=== PATIENT | female | born 1955 | race Caucasian/White ===

== ENCOUNTER 2019-10-15 01:53 | Emergency (ER) | payer BC, OTHER ==
[2019-10-15] MEDS ORDERED: Lidocaine 5% 700 MG Patch TOP ONE (02:21)
[2019-10-15] MEDS ORDERED: Cyclobenzaprine 10 MG Tab ONE (02:26)
[2019-10-15] MEDS ORDERED: Cyclobenzaprine 10 MG Tab PO ONE (02:28)
[2019-10-15] MEDS ORDERED: Cyclobenzaprine 5 MG Tab PO SCH (02:30)
[2019-10-15] MEDS ORDERED: Sodium Chloride 0.9% 1,000 ML IV ONE (03:08)
[2019-10-15 03:29] LABS: CARBON DIOXIDE,CO2 35.7 mmol/L (21.0-32.0); POTASSIUM,K 4.2 mmol/L (3.5-5.1)
[2019-10-15] MEDS ORDERED: Iopamidol 755 MG/ML 50 ML Bottle IV STA (04:07)
--- NOTE | 2019-10-15 04:23 | CT ---
INDICATION: Back pain and elevated D-dimer TECHNIQUE: CT chest PE was acquired with 50 cc Isovue 370 intravenous contrast. COMPARISON: None. FINDINGS: Heart and vasculature: Contrast opacification of the pulmonary arterial tree is adequate. No sign of pulmonary embolism. Thoracic aorta is normal in caliber with mild atherosclerotic calcification. No pericardial effusion. Lungs and pleural: Mild elevation left hemidiaphragm. Lymph nodes/mediastinum: No mediastinal, hilar, or axillary adenopathy. Chest wall: No masses. Upper abdomen: Elevation left hemidiaphragm. Bones: Minimal degenerative disc disease thoracic spine. IMPRESSION: 1. No evidence of pulmonary embolus. 2. Elevated left hemidiaphragm, otherwise essentially unremarkable CTA chest. Please note that all CT scans at this facility use dose modulation, iterative reconstruction, and/or weight-based dosing when appropriate to reduce radiation dose to as low as reasonably achievable. Dictated by Wilfrido Preciado MD @ Oct 15 2019 4:15AM Signed by Dr. Wilfrido Preciado @ Oct 15 2019 4:20AM
--- NOTE | 2019-10-15 04:43 | EDM.PDOC ---
ED HPI GENERAL MEDICAL PROBLEM - General Chief Complaint: Back Pain or Injury Stated Complaint: BACK PAIN Time Seen by Provider: 10/15/19 02:00 Source of Information: Reports: Patient History Limitations: Reports: No Limitations - History of Present Illness INITIAL COMMENTS - FREE TEXT/NARRATIVE: Patient is a 64-year-old female who awakening to go the bathroom 2 hours prior to arrival noted upon getting into bed she was having sharp stabbing severe back pain on her right upper back. Patient felt the pain does travel to her front to very lesser degree. She rates the pain is 9 out of 10 intensity and is worse with movement. She does not feel short of breath and is not having any exertional symptoms. She denies any cough or fever or chills. Is any swelling to her ankles or calfs. She is not currently nauseous or diaphoretic. There is been no vomiting or diarrhea. She has had no bloody or tarry stools. Patient denies having any similar symptoms in the past. She has taken nothing for current symptoms. Onset: Today, Sudden Quality: Reports: Sharp, Stabbing Severity: Severe Improves with: Reports: None Worsens with: Reports: Breathing, Movement Associated Symptoms: Reports: No Other Symptoms - Related Data Allergies Allergy/AdvReac Type Severity Reaction Status Date / Time Penicillins Allergy Rash Verified 10/15/19 02:13 Home Meds: Home Meds Chlorthalidone 10/15/19 [History] Cyclobenzaprine [Flexeril] 5 mg PO TID PRN #14 tab 10/15/19 [Rx] Lidocaine 5% [Lidoderm 5%] 1 patch TOP DAILY PRN #10 patch 10/15/19 [Rx] Past Medical History Cardiovascular History: Reports: Hypertension [employer]OR History: Reports: Other (See Below) - Infectious Disease History Infectious Disease History: Reports: Measles, Mumps - Past Surgical History GI Surgical History: Reports: Other (See Below) Other GI Surgeries/Procedures: hemmorhoidectomy Social & Family History - Tobacco Use Smoking Status *Q: Current Every Day Smoker Years of Tobacco use: 40 Packs/Tins Daily: 0.1 - Recreational Drug Use Recreational Drug Use: No ED ROS GENERAL - Review of Systems Review Of Systems: Comprehensive ROS is negative, except as noted in HPI. ED EXAM, UPPER BACK/NECK PAIN - Physical Exam Exam: See Below Exam Limited By: No Limitations General Appearance: Alert, No Apparent Distress Head Exam: Normocephalic Neck Exam: Non-Tender, Full Range of Motion Cardiovascular/Respiratory: Regular Rate, Rhythm, No JVD, Normal Breath Sounds, No Respiratory Distress GI/Abdominal: Normal Bowel Sounds, Soft, Non-Tender Back Exam: Normal Inspection, Muscle Spasm, Other (Patient's right sided rhomboid is and spasm and this does reproduce her pain symptoms with examination.) Extremities: Normal Inspection, Non-Tender, No Pedal Edema Neurologic: No Motor/Sensory Deficits, Alert Psychiatric: Normal Affect, Normal Mood Skin Exam: Normal Color, Warm/Dry EKG INTERPRETATION Rhythm: NSR P-Wave: Present QRS: Normal ST-T: Normal Course - Vital Signs Text/Narrative:: Patient was given a Lidoderm patch and heat to her back and Flexeril 5 mg tablet. Labs were sent and her d-dimer came back elevated. Patient then was sent for CTA which shows no pulmonary embolism or other acute disease. She has a very elevated left hemidiaphragm. Patient is being discharged at this point with a prescription for Lidoderm patch and low-dose Flexeril. She is advised use heat and massage as tolerated and to follow-up with her PCP for PT referral if not improving. She may return to ER anytime she is worse. Last Recorded V/S: Last Vital Signs Temp 36.1 C 10/15/19 02:10 Pulse 89 10/15/19 04:08 Resp 16 10/15/19 04:08 BP 137/90 10/15/19 04:08 Pulse Ox 99 10/15/19 04:08 - Orders/Labs/Meds Orders: Active Orders 24 hr Category Date Time Status EKG Documentation Completion [RC] STAT Care 10/15/19 03:31 Active Cyclobenzaprine [Flexeril] Med 10/15/19 02:30 Active 5 mg PO DAILY Medication Orders Cyclobenzaprine HCl (Flexeril) 5 mg PO DAILY [facility] Last Admin: 10/15/19 02:31 Dose: Labs: Laboratory Tests 10/15/19 10/15/19 10/15/19 Range/Units 02:28 02:28 02:28 WBC 10.25 (4.0-11.0) K/uL RBC 5.20 (4.30-5.90) M/uL Hgb 16.0 (12.0-16.0) g/dL Hct 48.4 H (36.0-46.0) % MCV 93.1 (80.0-98.0) fL MCH 30.8 (27.0-32.0) pg MCHC 33.1 (31.0-37.0) g/dL RDW Std Deviation 47.5 (28.0-62.0) fl RDW Coeff of Lauren 14 (11.0-15.0) % Plt Count 332 (150-400) K/uL MPV 10.40 (7.40-12.00) fL Neut % (Auto) 54.9 (48.0-80.0) % Lymph % (Auto) 30.9 (16.0-40.0) % [place] % (Auto) 8.8 (0.0-15.0) % Eos % (Auto) 4.8 (0.0-7.0) % Baso % (Auto) 0.6 (0.0-1.5) % Neut # (Auto) 5.6 (1.4-5.7) K/uL Lymph # (Auto) 3.2 H (0.6-2.4) K/uL [place] # (Auto) 0.9 H (0.0-0.8) K/uL Eos # (Auto) 0.5 (0.0-0.7) K/uL Baso # (Auto) 0.1 (0.0-0.1) K/uL Nucleated RBC % 0.0 /100WBC Nucleated RBCs # 0 K/uL D-Dimer, Quantitative 1.19 H (0.0-0.50) mg/L FEU Sodium (136-145) mmol/L Potassium (3.5-5.1) mmol/L Chloride (98-107) mmol/L Carbon Dioxide (21.0-32.0) mmol/L BUN (7.0-18.0) mg/dL Creatinine (0.6-1.0) mg/dL Est Cr Clr Drug Dosing mL/min Estimated GFR (MDRD) ml/min Glucose (74-106) mg/dL Calcium (8.5-10.1) mg/dL Total Bilirubin (0.2-1.0) mg/dL AST (15-37) IU/L ALT (14-63) IU/L Alkaline Phosphatase (46-116) U/L Troponin I < 0.050 (0.000-0.056) ng/mL Total Protein (6.4-8.2) g/dL Albumin (3.4-5.0) g/dL Globulin (2.6-4.0) g/dL Albumin/Globulin Ratio (0.9-1.6) 10/15/19 Range/Units 02:28 WBC (4.0-11.0) K/uL RBC (4.30-5.90) M/uL Hgb (12.0-16.0) g/dL Hct (36.0-46.0) % MCV (80.0-98.0) fL MCH (27.0-32.0) pg MCHC (31.0-37.0) g/dL RDW Std Deviation (28.0-62.0) fl RDW Coeff of Lauren (11.0-15.0) % Plt Count (150-400) K/uL MPV (7.40-12.00) fL Neut % (Auto) (48.0-80.0) % Lymph % (Auto) (16.0-40.0) % [place] % (Auto) (0.0-15.0) % Eos % (Auto) (0.0-7.0) % Baso % (Auto) (0.0-1.5) % Neut # (Auto) (1.4-5.7) K/uL Lymph # (Auto) (0.6-2.4) K/uL [place] # (Auto) (0.0-0.8) K/uL Eos # (Auto) (0.0-0.7) K/uL Baso # (Auto) (0.0-0.1) K/uL Nucleated RBC % /100WBC Nucleated RBCs # K/uL D-Dimer, Quantitative (0.0-0.50) mg/L FEU Sodium 142 (136-145) mmol/L Potassium 4.2 (3.5-5.1) mmol/L Chloride 102 (98-107) mmol/L Carbon Dioxide 35.7 H (21.0-32.0) mmol/L BUN 21 H (7.0-18.0) mg/dL Creatinine 1.4 H (0.6-1.0) mg/dL Est Cr Clr Drug Dosing 32.53 mL/min Estimated GFR (MDRD) 38.0 ml/min Glucose 116 H (74-106) mg/dL Calcium 9.5 (8.5-10.1) mg/dL Total Bilirubin 0.3 (0.2-1.0) mg/dL AST 18 (15-37) IU/L ALT 27 (14-63) IU/L Alkaline Phosphatase 70 (46-116) U/L Troponin I (0.000-0.056) ng/mL Total Protein 6.6 (6.4-8.2) g/dL Albumin 3.7 (3.4-5.0) g/dL Globulin 2.9 (2.6-4.0) g/dL Albumin/Globulin Ratio 1.3 (0.9-1.6) Meds: Medications Generic Name Dose Route Start Last Admin Trade Name Freq PRN Reason Stop Dose Admin Cyclobenzaprine HCl 5 mg 10/15/19 02:30 10/15/19 02:31 Flexeril PO Not Given DAILY [facility] Discontinued Medications Generic Name Dose Route Start Last Admin Trade Name Freq PRN Reason Stop Dose Admin Cyclobenzaprine HCl Confirm 10/15/19 02:26 10/15/19 02:31 Flexeril Administered 10/15/19 02:27 5 mg Dose Administration 10 mg .ROUTE .STK-MED ONE Cyclobenzaprine HCl 5 mg 10/15/19 02:28 Flexeril PO 10/15/19 02:29 ONETIME ONE Sodium Chloride 1,000 mls @ 999 mls/hr 10/15/19 03:08 10/15/19 03:30 Normal Saline IV 10/15/19 04:08 999 mls/hr .BOLUS ONE Administration Iopamidol 50 ml 10/15/19 04:07 10/15/19 04:09 Isovue-370 (76%) IV 10/15/19 04:08 50 ml ONETIME STA Administration Lidocaine 700 mg 10/15/19 02:21 10/15/19 02:30 Lidoderm 5% TOP 10/15/19 02:22 700 mg ONETIME ONE Administration Departure - Departure Time of Disposition: 04:43 Disposition: Home, Self-Care 01 Condition: Good Clinical Impression: Spasm of back muscles - Discharge Information Instructions: Muscle Cramps and Spasms, [id number], Heat Therapy Referrals: Andres Lovell MD [Primary Care Provider] - Additional Instructions: Heat and massage as tolerated. Ibuprofen and Lidoderm and Flexeril as needed. Follow-up with PCP if not improving. Return to ER if worse. Care Plan Goals: The following information is given to patients seen in the emergency department who are being discharged to home. This information is to outline your options for follow-up care. We provide all patients seen in our emergency department with a follow-up referral. The need for follow-up, as well as the timing and circumstances, are variable depending upon the specifics of your emergency department visit. If you don't have a primary care physician on staff, we will provide you with a referral. We always advise you to contact your personal physician following an emergency department visit to inform them of the circumstance of the visit and for follow-up with them and/or the need for any referrals to a consulting specialist. The emergency department will also refer you to a specialist when appropriate. This referral assures that you have the opportunity for follow-up care with a specialist. All of these measure are taken in an effort to provide you with optimal care, which includes your follow-up. Under all circumstances we always encourage you to contact your private physician who remains a resource for coordinating your care. When calling for follow-up care, please make the office aware that this follow-up is from your recent emergency room visit. If for any reason you are refused follow-up, please contact the [facility] Emergency Department at and asked to speak to the emergency department charge nurse. Sepsis Event Note - Evaluation Sepsis Screening Result: No Definite Risk - Focused Exam Vital Signs: Vital Signs Temp Pulse Resp BP Pulse Ox 10/15/19 04:08 89 16 137/90 99 10/15/19 03:00 84 16 128/82 94 L 10/15/19 02:10 36.1 C 88 18 147/96 H 96 Date Exam was Performed: 10/15/19 Time Exam was Performed: 04:37 - My Orders Last 24 Hours: My Active Orders 10/15/19 02:30 Cyclobenzaprine [Flexeril] 5 mg PO DAILY 10/15/19 03:31 EKG Documentation Completion [RC] STAT - Assessment/Plan Last 24 Hours: My Active Orders 10/15/19 02:30 Cyclobenzaprine [Flexeril] 5 mg PO DAILY 10/15/19 03:31 EKG Documentation Completion [RC] STAT
== END 2019-10-15 04:56 | disposition home or self-care (01) ==
LOC: MW.ED 01:53
DX: M62.830 Muscle spasm of back (principal); Z88.0 Allergy status to penicillin; F17.210 Nicotine dependence, cigarettes, uncomplicated
CPT/HCPCS: 36415; 71275; 80053; 84484; 85025; 85379; 93005; 99284; A9270; J7030; Q9967; 99283

== ENCOUNTER 2021-03-22 21:14 | Emergency (ER) | payer OTHER ==
--- NOTE | 2021-03-22 21:18 | EDM.PDOC ---
ED HPI GENERAL MEDICAL PROBLEM - General Chief Complaint: Cardiovascular Problem Stated Complaint: CHEST PAIN CLAMMY Time Seen by Provider: 03/22/21 21:16 Source of Information: Reports: Patient History Limitations: Reports: No Limitations - History of Present Illness INITIAL COMMENTS - FREE TEXT/NARRATIVE: Patient is a 65-year-old female history of hyperlipidemia high blood pressure presents today for back pain that was right-sided mid back this states she feels it radiates to her chest. She describes achy feeling and not a tearing feeling. States that the beats the pain better and or worse she has no pain or tingling down her arms. She took some Tylenol earlier for the pain did not help out. She denies any associated symptoms with shortness of breath cough fever chills or nausea or vomiting. Back Pain Score (Numeric/FACES): 7 - Related Data Allergies Allergy/AdvReac Type Severity Reaction Status Date / Time Penicillins Allergy Rash Verified 10/15/19 02:13 Home Meds: Home Meds Chlorthalidone 25 mg PO DAILY 10/15/19 [History] Lidocaine 5% [Lidoderm 5%] 1 patch TOP DAILY PRN #10 patch 10/15/19 [Rx] Celecoxib 200 mg PO DAILY 03/22/21 [History] Rosuvastatin Calcium 1 tab PO DAILY 03/22/21 [History] Past Medical History Cardiovascular History: Reports: Hypertension RAG BALER History: Reports: Other (See Below) - Infectious Disease History Infectious Disease History: Reports: Measles, Mumps - Past Surgical History GI Surgical History: Reports: Other (See Below) Other GI Surgeries/Procedures: hemmorhoidectomy ED ROS GENERAL - Review of Systems Review Of Systems: See Below Constitutional: Reports: No Symptoms HEENT: Reports: No Symptoms Respiratory: Reports: No Symptoms Cardiovascular: Reports: Chest Pain Endocrine: Reports: No Symptoms GI/Abdominal: Reports: No Symptoms : Reports: No Symptoms Musculoskeletal: Reports: No Symptoms Skin: Reports: No Symptoms Neurological: Reports: No Symptoms Psychiatric: Reports: No Symptoms Hematologic/Lymphatic: Reports: No Symptoms Immunologic: Reports: No Symptoms ED EXAM, GENERAL - Physical Exam Exam: See Below Exam Limited By: No Limitations General Appearance: Alert, WD/WN, No Apparent Distress Eye Exam: Bilateral Eye: EOMI, PERRL Ears: Normal External Exam Nose: Normal Inspection Throat/Mouth: Normal Inspection Head: Atraumatic, Normocephalic Neck: Normal Inspection, Supple Respiratory/Chest: No Respiratory Distress, Lungs Clear, Normal Breath Sounds Cardiovascular: Normal Peripheral Pulses, Regular Rate, Rhythm GI/Abdominal: Normal Bowel Sounds, Soft, Non-Tender Extremities: Normal Inspection, Normal Range of Motion Neurological: Alert, Oriented, Normal Cognition, Normal Gait Course - Vital Signs Last Recorded V/S: Last Vital Signs Temp 97.3 F 03/22/21 21:27 Pulse 82 03/22/21 21:27 Resp 15 03/22/21 21:27 BP 160/95 H 03/22/21 21:27 Pulse Ox 95 03/22/21 21:27 - Orders/Labs/Meds Orders: Active Orders 24 hr Category Date Time Status TROPONIN I [CHEM] Stat Lab 03/23/21 00:15 Received Labs: Laboratory Tests 03/22/21 03/22/21 03/22/21 Range/Units 21:30 21:30 21:30 WBC 11.67 H (4.0-11.0) K/uL RBC 5.01 (4.30-5.90) M/uL Hgb 15.6 (12.0-16.0) g/dL Hct 46.0 (36.0-46.0) % MCV 91.8 (80.0-98.0) fL MCH 31.1 (27.0-32.0) pg MCHC 33.9 (31.0-37.0) g/dL RDW Std Deviation 47.2 (28.0-62.0) fl RDW Coeff of Lauren 14 (11.0-15.0) % Plt Count 324 (150-400) K/uL MPV 10.60 (7.40-12.00) fL Neut % (Auto) 46.8 L (48.0-80.0) % Lymph % (Auto) 38.6 (16.0-40.0) % [place] % (Auto) 8.6 (0.0-15.0) % Eos % (Auto) 5.5 (0.0-7.0) % Baso % (Auto) 0.5 (0.0-1.5) % Neut # (Auto) 5.5 (1.4-5.7) K/uL Lymph # (Auto) 4.5 H (0.6-2.4) K/uL [place] # (Auto) 1.0 H (0.0-0.8) K/uL Eos # (Auto) 0.6 (0.0-0.7) K/uL Baso # (Auto) 0.1 (0.0-0.1) K/uL Nucleated RBC % 0.0 /100WBC Nucleated RBCs # 0 K/uL INR 0.92 APTT 21.6 (18.6-31.3) SEC D-Dimer, Quantitative (0.0-0.50) mg/L FEU Sodium 142 (136-145) mmol/L Potassium 3.7 (3.5-5.1) mmol/L Chloride 101 (98-107) mmol/L Carbon Dioxide 32.0 (21.0-32.0) mmol/L BUN 21 H (7.0-18.0) mg/dL Creatinine 1.0 (0.6-1.0) mg/dL Est Cr Clr Drug Dosing 44.95 mL/min Estimated GFR (MDRD) 55.8 ml/min Glucose 93 (74-106) mg/dL Calcium 8.9 (8.5-10.1) mg/dL Magnesium 2.1 (1.8-2.4) mg/dL Total Bilirubin 0.3 (0.2-1.0) mg/dL AST 16 (15-37) IU/L ALT 28 (14-63) IU/L Alkaline Phosphatase 70 (46-116) U/L Creatine Kinase 75 (26-308) U/L Troponin I < 0.050 (0.000-0.056) ng/mL Total Protein 7.2 (6.4-8.2) g/dL Albumin 3.8 (3.4-5.0) g/dL Globulin 3.4 (2.6-4.0) g/dL Albumin/Globulin Ratio 1.1 (0.9-1.6) Lipase 114 (73-393) U/L 03/22/21 Range/Units 21:30 WBC (4.0-11.0) K/uL RBC (4.30-5.90) M/uL Hgb (12.0-16.0) g/dL Hct (36.0-46.0) % MCV (80.0-98.0) fL MCH (27.0-32.0) pg MCHC (31.0-37.0) g/dL RDW Std Deviation (28.0-62.0) fl RDW Coeff of Lauren (11.0-15.0) % Plt Count (150-400) K/uL MPV (7.40-12.00) fL Neut % (Auto) (48.0-80.0) % Lymph % (Auto) (16.0-40.0) % [place] % (Auto) (0.0-15.0) % Eos % (Auto) (0.0-7.0) % Baso % (Auto) (0.0-1.5) % Neut # (Auto) (1.4-5.7) K/uL Lymph # (Auto) (0.6-2.4) K/uL [place] # (Auto) (0.0-0.8) K/uL Eos # (Auto) (0.0-0.7) K/uL Baso # (Auto) (0.0-0.1) K/uL Nucleated RBC % /100WBC Nucleated RBCs # K/uL INR APTT (18.6-31.3) SEC D-Dimer, Quantitative 0.71 H (0.0-0.50) mg/L FEU Sodium (136-145) mmol/L Potassium (3.5-5.1) mmol/L Chloride (98-107) mmol/L Carbon Dioxide (21.0-32.0) mmol/L BUN (7.0-18.0) mg/dL Creatinine (0.6-1.0) mg/dL Est Cr Clr Drug Dosing mL/min Estimated GFR (MDRD) ml/min Glucose (74-106) mg/dL Calcium (8.5-10.1) mg/dL Magnesium (1.8-2.4) mg/dL Total Bilirubin (0.2-1.0) mg/dL AST (15-37) IU/L ALT (14-63) IU/L Alkaline Phosphatase (46-116) U/L Creatine Kinase (26-308) U/L Troponin I (0.000-0.056) ng/mL Total Protein (6.4-8.2) g/dL Albumin (3.4-5.0) g/dL Globulin (2.6-4.0) g/dL Albumin/Globulin Ratio (0.9-1.6) Lipase (73-393) U/L Meds: Medications Discontinued Medications Generic Name Dose Route Start Last Admin Trade Name Lia PRN Reason Stop Dose Admin Aspirin Confirm 03/22/21 21:42 03/22/21 21:57 Aspirin 81 Mg Tab.Chew Administered 03/22/21 21:43 Not Given Dose 324 mg .ROUTE .STK-MED ONE Aspirin 325 mg 03/22/21 21:53 Aspirin 325 Mg Tab PO 03/22/21 21:54 ONETIME ONE Aspirin 324 mg 03/22/21 21:54 03/22/21 21:56 Aspirin 81 Mg Tab.Chew PO 03/22/21 21:55 324 mg ONETIME ONE Administration Iopamidol 100 ml 03/22/21 23:01 03/22/21 23:06 Iopamidol 755 Mg/Ml 500 Ml Multipack Bottle IVPUSH 03/22/21 23:02 100 ml ONETIME STA Administration - Re-Assessments/Exams Free Text/Narrative Re-Assessment/Exam: 03/23/21 00:[address] did not show any dissections or PEs. Patient tropes negative. Patient is pain-free. Due to patient heart score he wanted to mid observation outpatient before he go home and will try to follow-up PMD since everything is normal and tropes are negative. Patient given strict return precautions. Departure - Departure Time of Disposition: 00:21 Disposition: Home, Self-Care 01 Condition: Good Clinical Impression: Chest pain Instructions: Nonspecific Chest Pain, Adult, [id number] Forms: ED Department Discharge Additional Instructions: The following information is given to patients seen in the emergency department who are being discharged to home. This information is to outline your options for follow-up care. We provide all patients seen in our emergency department with a follow-up referral. The need for follow-up, as well as the timing and circumstances, are variable depending upon the specifics of your emergency department visit. If you don't have a primary care physician on staff, we will provide you with a referral. We always advise you to contact your personal physician following an emergency department visit to inform them of the circumstance of the visit and for follow-up with them and/or the need for any referrals to a consulting specialist. The emergency department will also refer you to a specialist when appropriate. This referral assures that you have the opportunity for follow-up care with a specialist. All of these measure are taken in an effort to provide you with optimal care, which includes your follow-up. Under all circumstances we always encourage you to contact your private physician who remains a resource for coordinating your care. When calling for follow-up care, please make the office aware that this follow-up is from your recent emergency room visit. If for any reason you are refused follow-up, please contact the [facility] Emergency De partment at and asked to speak to the emergency department charge nurse. Please follow up with your primary care physician. If you do not have a primary care physician, see below: [facility] [address] [place] [id number] [facility] [address] [place] [address] [facility] [address] [place] [id number] You are seen today for back pain that went to your chest. We did a CT scan did not show any signs of causes of the chest pain we also did EKGs that were within normal limits also labs as well. We will like to admit her here for observation but she would rather go home and follow-up with her primary care physician. If you have any other concerning signs or symptoms please return to the ED immediately. Sepsis Event Note (ED) - Focused Exam Vital Signs: Vital Signs Temp Pulse Resp BP Pulse Ox 03/22/21 21:27 97.3 F 82 15 160/95 H 95 - My Orders Last 24 Hours: My Active Orders 03/23/21 00:15 TROPONIN I [CHEM] Stat - Assessment/Plan Last 24 Hours: My Active Orders 03/23/21 00:15 TROPONIN I [CHEM] Stat Plan: Patient is a 65-year-old female presents today for back pain that she states radiates to the chest. She has no associated symptoms. She has a heart score 4 due to age and risk factors. Will obtain labs D-dimer chest x-ray and reassess.
[2021-03-22] MEDS ORDERED: Aspirin 81 MG Tab.Chew ONE (21:42)
[2021-03-22] MEDS ORDERED: Aspirin 325 MG Tab PO ONE (21:53)
[2021-03-22] MEDS ORDERED: Aspirin 81 MG Tab.Chew PO ONE (21:54)
[2021-03-22 22:12] LABS: BLOOD UREA NITROGEN,BUN 21 mg/dL (7.0-18.0); CHLORIDE,CL 101 mmol/L (98-107); GLUCOSE RANDOM 93 mg/dL (74-106); LIPASE 114 U/L (73-393); POTASSIUM,K 3.7 mmol/L (3.5-5.1); SODIUM,NA 142 mmol/L (136-145)
--- NOTE | 2021-03-22 22:50 | CR ---
Indication: Chest pain Technique: Chest 1 view Comparison: None Findings/Impression: Cardiovascular and mediastinum: Normal heart size with mild aortic tortuosity. Lungs and pleural space: No pleural effusion or pneumothorax. Low lung volumes with mild elevation left hemidiaphragm. No focal consolidation. Bones and soft tissues: No acute findings. Dictated by Wilfrido Preciado MD @ 03/22/2021 10:48:31 PM (Electronically Signed)
[2021-03-22] MEDS ORDERED: Iopamidol 755 MG/ML 500 ML Multipack Bottle IVPUSH STA (23:01)
--- NOTE | 2021-03-22 23:58 | CT ---
INDICATION: Back pain radiating to chest TECHNIQUE: CT chest PE was acquired with 100 cc Isovue 370 intravenous contrast. COMPARISON: Chest CT 10/15/2019 FINDINGS: Heart and vasculature: The great vessels are patent. Thoracic aorta is normal in caliber with mild atherosclerotic calcification. No pericardial effusion. Mild coronary atherosclerosis. Upper abdominal aorta is normal in caliber. Pulmonary artery unremarkable. Lungs and pleural: No suspicious nodules or infiltrates. No pleural effusions, pleural thickening, or pneumothorax. Mild elevation left hemidiaphragm proved Lymph nodes/mediastinum: No mediastinal, hilar, or axillary adenopathy. Chest wall: No masses. Upper abdomen: Elevated left hemidiaphragm. Bones: Unremarkable for age. IMPRESSION: 1. Mild atherosclerotic calcification without evidence of thoracic aortic aneurysm or dissection. 2. Elevated left hemidiaphragm redemonstrated, otherwise essentially unremarkable CTA chest. Please note that all CT scans at this facility use dose modulation, iterative reconstruction, and/or weight-based dosing when appropriate to reduce radiation dose to as low as reasonably achievable. Dictated by Wilfrido Preciado MD @ 03/22/2021 11:56:13 PM (Electronically Signed)
== END 2021-03-23 01:01 | disposition home or self-care (01) ==
LOC: MW.ED 21:14
DX: R07.9 Chest pain, unspecified (principal); I10 Essential (primary) hypertension; Z88.0 Allergy status to penicillin
CPT/HCPCS: 36415; 71045; 71275; 80053; 82550; 83690; 83735; 84484; 85025; 85379; 85610; 85730; 93005; 99285; A9270; Q9967